=== PATIENT | female | born 1940 | race Caucasian/White ===

== ENCOUNTER 2020-08-04 10:38 | Inpatient (IN) | payer OTHER ==
[~2020-08-04] VITALS: Ht 152.4 cm; Wt 54.4 kg
[2020-08-04] MEDS ORDERED: AMLODIPINE BESYL5 MG PO (11:53)
[2020-08-04] MEDS ORDERED: ARICEPT10 M1 PO (11:54)
[2020-08-04] MEDS ORDERED: COREG12.5 M1 PO (11:55)
[2020-08-04] MEDS ORDERED: COZAAR100 MG PO (11:56)
[2020-08-04] MEDS ORDERED: ATIVAN0.5 MG PO (11:56)
[2020-08-04] MEDS ORDERED: NAMENDA10 MG PO (11:57)
[2020-08-04] MEDS ORDERED: SIMVASTATIN20 MG PO (11:58)
[2020-08-04] MEDS ORDERED: VISTARIL25 MG PO (11:59)
[2020-08-04 18:25] VITALS: BP 127/69
[2020-08-04 20:00] VITALS: BP 127/69
[2020-08-04 20:40] LABS: BILIRUBIN Negative (Negative); BLOOD Negative (Negative); CLARITY Cloudy (Clear); COLOR Yellow (Yellow); GLUCOSE Negative (Negative); KETONE Negative (Negative); LEUKO ESTERASE Trace (Negative); NITRITE Negative (Negative); SPECIFIC GRAVITY 1.015 (1.001-1.030)
[2020-08-04 21:02] LABS: EPITHELIAL CELLS 31-40; WBC 16-20 wbc/hpf (0-5)
[2020-08-04 21:03] LABS: BACTERIA 3+
[2020-08-05 06:20] LABS: BASO % 0.6 % (0.0-1.0); EOS # 0.1 10*3/uL (0.0-0.4); HEMATOCRIT 40.1 % (37.0-47.0); LYMPH # 1.4 10*3/uL (1.3-4.4); LYMPH % 21.5 % (27.0-41.0); MEAN CELL VOLUME 97.1 fl (81.0-99.0); MEAN CORPUSCULAR HGB CONC 32.9 g/dl (33.0-37.0); MEAN PLATELET VOLUME 10.4 fl (9.6-12.3); MONO # 0.9 10*3/uL (0.1-1.0); NEUT % 61.6 % (47.0-73.0); PLATELET COUNT AUTOMATED 130 10*3/uL (130-400); RED BLOOD COUNT 4.13 10*6/uL (4.10-5.10); RED CELL DISTRI WIDTH 13.6 % (0-14.5); WHITE BLOOD COUNT 6.6 10*3/uL (4.8-10.8)
[2020-08-05 06:32] LABS: ALBUMIN 3.3 gm/dl (3.1-4.5); BUN 13 mg/dl (7-24); CHLORIDE 109 mmol/L (98-107); CHOLESTEROL 173 mg/dL (<200); POTASSIUM 4.1 mmol/L (3.5-5.1); SGOT/AST 17 IU/L (3-35); SGPT/ALT 31 U/L (12-78); SODIUM 141 mmol/L (136-145); TRIGLYCERIDES 81 mg/dl (<150)
[2020-08-05 06:43] LABS: ALKALINE PHOSPHATASE 78 U/L (45-117); CREATININE 0.85 mg/dL (0.55-1.02); LDL CHOLESTEROL 84 mg/dL (9-159); TOTAL PROTEIN 6.6 gm/dL (6.4-8.2)
[2020-08-05 07:19] LABS: VITAMIN D, 25-HYDROXY 32.5 ng/mL (30-100)
[2020-08-05 07:29] VITALS: BP 147/68
[2020-08-05 20:00] VITALS: BP 133/58
[2020-08-06 07:14] VITALS: BP 122/61
[2020-08-06 20:00] VITALS: BP 103/47
[2020-08-07 07:24] VITALS: BP 133/60
[2020-08-07 20:00] VITALS: BP 132/50
[2020-08-08 07:30] VITALS: BP 146/58
[2020-08-08 19:07] VITALS: BP 120/59
[2020-08-09 07:14] VITALS: BP 143/62
[2020-08-09 20:12] VITALS: BP 105/53
[2020-08-10 07:00] VITALS: BP 134/60
[2020-08-10 19:00] VITALS: BP 136/61
[2020-08-11 08:00] VITALS: BP 127/52
[2020-08-11 20:00] VITALS: BP 102/53
[2020-08-12 07:58] VITALS: BP 126/56
[2020-08-12 20:00] VITALS: BP 110/47
[2020-08-12 20:30] VITALS: BP 98/32
[2020-08-12 21:45] VITALS: BP 101/33
[2020-08-12 22:30] VITALS: BP 101/33
[2020-08-13 01:18] VITALS: BP 110/50
[2020-08-13 06:00] VITALS: BP 124/58
[2020-08-13 06:30] LABS: ALBUMIN 2.7 gm/dl (3.1-4.5); ALKALINE PHOSPHATASE 65 U/L (45-117); BASO # 0.1 10*3/uL (0.0-0.1); BASO % 0.7 % (0.0-1.0); BUN 13 mg/dl (7-24); CHLORIDE 106 mmol/L (98-107); EOS # 0.2 10*3/uL (0.0-0.4); EOS % 2.4 % (1.0-4.0); HEMATOCRIT 37.2 % (37.0-47.0); LYMPH # 1.4 10*3/uL (1.3-4.4); LYMPH % 18.2 % (27.0-41.0); MEAN CELL VOLUME 98.2 fl (81.0-99.0); MEAN CORPUSCULAR HGB 31.4 pg (27.0-31.0); MEAN PLATELET VOLUME 10.4 fl (9.6-12.3); MONO # 1.2 10*3/uL (0.1-1.0); MONO % 15.6 % (3.0-9.0); NEUT # 4.7 10*3/uL (2.3-7.9); NEUT % 62.3 % (47.0-73.0); PLATELET COUNT AUTOMATED 151 10*3/uL (130-400); RED BLOOD COUNT 3.79 10*6/uL (4.10-5.10); RED CELL DISTRI WIDTH 14.1 % (0-14.5); SGOT/AST 18 IU/L (3-35); SGPT/ALT 19 U/L (12-78); SODIUM 138 mmol/L (136-145); TOTAL PROTEIN 5.6 gm/dL (6.4-8.2); WHITE BLOOD COUNT 7.6 10*3/uL (4.8-10.8)
[2020-08-13 07:09] LABS: BILIRUBIN Negative (Negative); BLOOD Negative (Negative); CLARITY Clear (Clear); COLOR Yellow (Yellow); GLUCOSE Negative (Negative); KETONE Negative (Negative); LEUKO ESTERASE Negative (Negative); NITRITE Negative (Negative); PH 6.5 (4.5-8.0)
[2020-08-13 07:26] LABS: EPITHELIAL CELLS 16-20
[2020-08-13 07:27] LABS: BACTERIA 1+
[2020-08-13 07:45] VITALS: BP 124/58
[2020-08-13 20:00] VITALS: BP 150/55
[2020-08-14 07:17] VITALS: BP 145/53
[2020-08-14 18:00] VITALS: BP 129/48
[2020-08-15 06:59] VITALS: BP 130/60
[2020-08-15 20:04] VITALS: BP 119/64
[2020-08-16 07:32] VITALS: BP 121/79
[2020-08-16 19:50] VITALS: BP 111/62
[2020-08-17 07:16] VITALS: BP 110/54
[2020-08-17] MEDS ORDERED: VITAMIN D3125 MC1 PO (11:14)
[2020-08-17] MEDS ORDERED: B121000 MCG/1 IM (11:14)
[2020-08-17] MEDS ORDERED: QUETIAPINE FUMA50 M1 PO (11:14)
[2020-08-17] MEDS ORDERED: QUETIAPINE FUM100 M3 PO (11:14)
[2020-08-17] MEDS ORDERED: RIVASTIGMINE1 EAC2 T (11:14)
[2020-08-17 20:00] VITALS: BP 112/52
[2020-08-18 07:22] VITALS: BP 151/68
== END 2020-08-18 12:30 | DRG 883 ==
LOC: 3N 10:38
PROVIDERS: Counselor Professional; Registered Nurse; ADMIT Psychiatry & Neurology Psychiatry; ATTEND Psychiatry & Neurology Psychiatry
DX: F63.81 Intermittent explosive disorder (principal); F33.9 Major depressive disorder, recurrent, unspecified; I10 Essential (primary) hypertension; E78.5 Hyperlipidemia, unspecified; G30.9 Alzheimer's disease, unspecified; F02.80 Dementia in other diseases classified elsewhere, unspecified severity, without behavioral disturbance, psychotic disturbance, mood disturbance, and anxiety; E78.00 Pure hypercholesterolemia, unspecified; E87.8 Other disorders of electrolyte and fluid balance, not elsewhere classified; Z86.73 Personal history of transient ischemic attack (TIA), and cerebral infarction without residual deficits; Z79.899 Other long term (current) drug therapy